=== PATIENT | male | born 1975 | race Caucasian/White ===

== ENCOUNTER → 2016-06-21 | Outpatient (CLI) | payer MEDICARE ==
[~2016-06-21] MED LIST: AMOXICILLIN500 M2 PO; ANUSOL-HC25 MG RC; COLACE100 MG PO; GABAPENTIN CAP 300; GLYCOLAX17 GM/DOSE PO; HYDROCHLOROT TAB 25M; HYDROCHLOROTHIA25 M1 PO; HYDROCODONE BIT1 T11 PO; IBUPROFEN TAB 800; LISINOPRIL AND1 TAB PO; NEURONTIN300 MG PO; OMEPRAZOLE40 MG PO; OXYCODONE 5 MG; OXYCODONE HCL10 M1 PO; OXYMORPHONE HCL10 MG PO; OYSTER SHELL CA1 T20 PO; SENEXON8.6 MG PO; VITAMIN D50000 I3 PO; VITAMIN D50000 IU PO
== END | disposition home or self-care (01) ==
LOC: RAD 11:18
DX: G90.521 Complex regional pain syndrome I of right lower limb (principal)

== ENCOUNTER → 2016-12-21 | Outpatient (CLI) | payer MEDICARE ==
[2016-12-21 09:08] LABS: HEMATOCRIT 40.4 % (42.0-52.0); HEMOGLOBIN 12.9 g/dl (14.0-18.0); MEAN CELL VOLUME 87.6 fl (80.0-94.0); MEAN CORPUSCULAR HGB CONC 31.9 g/dl (33.0-37.0); MEAN PLATELET VOLUME 10.6 fl (9.6-12.3); RED BLOOD COUNT 4.61 10*6/uL (4.50-5.90); RED CELL DISTRI WIDTH 13.8 % (0-14.5)
[2016-12-21 09:28] LABS: BILIRUBIN NEGATIVE (NEGATIVE); BLOOD NEGATIVE (NEGATIVE); CLARITY CLEAR (CLEAR); COLOR YELLOW (YELLOW); GLUCOSE NEGATIVE (NEGATIVE); KETONE NEGATIVE (NEGATIVE); LEUKO ESTERASE NEGATIVE (NEGATIVE); NITRITE NEGATIVE (NEGATIVE); SPECIFIC GRAVITY 1.015 (1.005-1.030); UROBILINOGEN 0.2 E.U./dl (0.2-1.0)
[2016-12-21 09:36] LABS: BUN 9 mg/dl (7-24); CHLORIDE 99 mmol/L (98-107); CREATININE 0.98 mg/dL (0.70-1.30); POTASSIUM 3.7 mmol/L (3.5-5.1); SODIUM 137 mmol/L (136-145)
[2016-12-21 09:45] LABS: BACTERIA TRACE
[2016-12-21 09:47] LABS: ACT PARTIAL THROMBO TIME 25.9 SECONDS (20.8-31.5)
== END | disposition home or self-care (01) ==
LOC: LAB 08:35
PROVIDERS: Anesthesiology Addiction Medicine
DX: Z01.818 Encounter for other preprocedural examination (principal); N39.0 Urinary tract infection, site not specified; I10 Essential (primary) hypertension; M79.606 Pain in leg, unspecified; M54.9 Dorsalgia, unspecified; Z79.899 Other long term (current) drug therapy

== ENCOUNTER 2017-03-14 07:47 | Emergency (ER) | payer MEDICARE ==
[~2017-03-14] VITALS: Ht 180.3 cm; Wt 131.5 kg
[2017-03-14] MEDS ORDERED: LISINOPRIL10 M1 PO (08:02)
[2017-03-14] MEDS ORDERED: NORTRIPTYLINE H75 M1 PO (08:03)
[2017-03-14 08:24] LABS: BASO % 0.2 % (0.0-1.0); EOS # 0.1 10*3/uL (0.0-0.4); EOS % 0.6 % (1.0-4.0); HEMATOCRIT 40.7 % (42.0-52.0); HEMOGLOBIN 13.4 g/dl (14.0-18.0); LYMPH # 1.3 10*3/uL (1.3-4.4); MEAN CELL VOLUME 84.3 fl (80.0-94.0); MEAN CORPUSCULAR HGB 27.7 pg (27.0-31.0); MEAN CORPUSCULAR HGB CONC 32.9 g/dl (33.0-37.0); MEAN PLATELET VOLUME 10.6 fl (9.6-12.3); MONO # 0.6 10*3/uL (0.1-1.0); MONO % 7.3 % (3.0-9.0); NEUT # 6.1 10*3/uL (2.3-7.9); NEUT % 75.7 % (47.0-73.0); PLATELET COUNT AUTOMATED 320 10*3/uL (130-400); RED BLOOD COUNT 4.83 10*6/uL (4.50-5.90); RED CELL DISTRI WIDTH 14.2 % (0-14.5); WHITE BLOOD COUNT 8.1 10*3/uL (4.8-10.8)
[2017-03-14 08:42] LABS: ACT PARTIAL THROMBO TIME 26.1 SECONDS (20.8-31.5)
[2017-03-14 08:43] LABS: ALBUMIN 3.7 gm/dl (3.1-4.5); ALKALINE PHOSPHATASE 170 U/L (45-117); BUN 7 mg/dl (7-24); CHLORIDE 102 mmol/L (98-107); CREATININE 0.87 mg/dL (0.70-1.30); LIPASE 171 U/L (73-393); POTASSIUM 3.7 mmol/L (3.5-5.1); SGOT/AST 28 IU/L (3-35); SGPT/ALT 64 U/L (12-78); SODIUM 137 mmol/L (136-145); TOTAL PROTEIN 8.4 gm/dL (6.4-8.2)
[2017-03-14 08:44] LABS: TROPONIN I < 0.015 ng/ml (<0.045)
[2017-03-14] MEDS ORDERED: FLONASE ALLERG9.9 ML NAS (10:51)
== END 2017-03-14 11:22 | disposition home or self-care (01) ==
LOC: ED 07:47
PROVIDERS: Emergency Medicine
DX: R09.81 Nasal congestion (principal); R06.02 Shortness of breath; Z79.899 Other long term (current) drug therapy; Z87.891 Personal history of nicotine dependence

== ENCOUNTER 2017-04-13 03:49 | Inpatient (IN) | payer MEDICARE ==
[2017-04-13] VITALS (8 sets, daily range): BP systolic 112–146; BP diastolic 64–80
[~2017-04-13] VITALS: Ht 180.3 cm; Wt 124.3 kg
--- NOTE | ~2017-04-13 | PR ---
[place], [place] PROGRESS NOTE NAME: ROCIO COOK UNIT #: [id number] ROOM: 402 DOCTOR: WINTER JIANG MD BIRTHDATE: [birth year] DOS: 04/15/2017 PULMONARY FOLLOWUP SUBJECTIVE: The patient was noted comfortable at this time without any acute distress, was complaining of dizziness. There were no symptoms of shortness of breath reported. He has not been noted symptoms of chest pain or any abdominal pain. The patient does not have any coughing or any sputum expectoration as well. OBJECTIVE: VITAL SIGNS: For the patient, which has been recorded for the patient shows the temperature patient noted as normal. The respiratory rate was noted as 20, heart rate of 106-97, blood pressure 132/80-113/62. Pulse oxygen saturation noted room air 94% saturation at rest. HEENT: Examination shows chronic obesity. NECK: Supple. CARDIOVASCULAR: S1, S2 audible. LUNGS: Without any wheezing or crackles. Decreased pulses right lower lung. ABDOMEN: Soft, nontender and obese. LABORATORY DATA: Arterial blood gas of the patient, the first blood gas was noted to be venous, second blood gas arterial room air, pH of 7.49, pCO2 of 35, pO2 of 71. The 6-minute walk test that was ordered for the patient was personally reviewed as well. The results were noted. There was no evidence of exertional hypoxia, but noted tachycardia and hypertension. The patient noted normal response to the patient's current 6-minute walk test. IMPRESSION: 1. Rule out right diaphragmatic paralysis. The patient has shortness of breath at this time. The patient's etiology is unclear. 2. Chronic obesity and suspected obstructive sleep apnea disorder. PLAN OF THERAPY: No changes in the plan of management per the patient at this time. Ordered the chest x-ray of the patient with fluoroscopy to rule out right diaphragmatic paralysis. In the meantime, continue other treatment the patient has ordered by the primary care attending. [place], [place] PROGRESS NOTE NAME: ROCIO COOK UNIT #: [id number] ROOM: 402 DOCTOR: WINTER JIANG MD BIRTHDATE: [birth year] WINTER DOWD MD CM:PNTRANS [id number] WINTER VALLE MD 04/15/17 175 interface
--- NOTE | ~2017-04-13 | PR ---
[place], [place] PROGRESS NOTE NAME: ROCIO COOK [id number] UNIT #: [id number] ROOM: 402 DOCTOR: NOEMÍ VALLE MD,WINTER BIRTHDATE: [birth year] DOS: 04/16/2017 SUBJECTIVE: The patient noted comfortable at this time without any acute distress. He has been getting cardiac testing for assessment of dizziness and other issues of shortness of breath reported by the patient. He denies symptoms of chest pain. The patient denies symptoms of hemoptysis. OBJECTIVE: VITAL SIGNS: Normal temperature, respiratory rate 20, heart rate 100-118, the heart rate previously noted yesterday 136 beats per minute. Blood pressure 125/80-128/74. The pulse oxygen saturation on room air 95% saturation. HEENT: Shows no acute change. NECK: Supple. CARDIOVASCULAR: S1 and S2 audible. LUNGS: Noted decreased breaths in the right lower lung remains unchanged. ABDOMEN: Soft, nontender with obese. EXTREMITIES: Without any acute edema. LABORATORY DATA: Elevation of right hemidiaphragm was still noted, but the fluoroscopy was not noted with any evidence of diaphragmatic paralysis. IMPRESSION: 1. Elevation of right hemidiaphragm may be related to the liver, but there was no evidence of diaphragmatic paralysis. 2. Shortness of breath. The exact etiology was not clearly understood. 3. Obstructive sleep apnea disorder. 4. Tachycardia, which has been assessed by the Cardiology Services. PLAN OF TREATMENT: No change from the pulmonary standpoint. Continue patient's current therapy plan as previously without changes. All supportive plan of care and management. Usual care. WINTER DOWD MD CM:PNTRANS [id number] WINTER VALLE MD 04/17/17 0021 interface
--- NOTE | ~2017-04-13 | CON ---
[place], [place] REPORT OF CONSULTATION NAME: ROCIO COOK [facility] #: [id number] UNIT #: [id number] ROOM: 402 DOCTOR: NOEMÍ VALLE MDWINTER BIRTHDATE: [birth year] DOS: 04/14/2017 PULMONARY CONSULTATION, EVALUATION AND MANAGEMENT CONSULTATION REQUESTED BY: Hospitalist service. REASON FOR CONSULTATION: For assessment of shortness of breath. HISTORY OF PRESENT ILLNESS: This is a 42-year-old white male with suspected diagnosis of obstructive sleep apnea disorder. He presented to the hospital and admitted to the hospital under care of the hospitalist services. The patient stated symptoms of having shortness of breath, which has been currently progressive, nonresolving at home for the past several months. The symptoms have been noted with gradual worsening. The patient denies symptoms of chest pain or any acute hemoptysis. The patient does have a mild cough, which is occurring with the deep inspiratory effort and noted no sputum expectoration. Denies any wheezing or chest tightness or chest pain as angina. REVIEW OF SYSTEMS: CONSTITUTIONAL: He does report symptoms of fatigue and tiredness. Denies symptoms of abnormal weight loss. EYES: Denies any burning, redness, or tenderness. EARS, NOSE, AND THROAT: History of chronic habitual snoring was known. Denies symptoms of postnasal drainage or epistaxis, earache or sore throat. CARDIOVASCULAR: The patient denies symptoms of pain or edema of lower extremities. Denies symptoms of palpitations. GASTROINTESTINAL: No dysphagia, nausea, vomiting, diarrhea, abdominal pain, hematemesis, melena, hematochezia, or any abnormal weight loss history. GENITOURINARY SYMPTOMS: No dysuria, suprapubic pain, hematuria, or urinary retention. MUSCULOSKELETAL SYMPTOMS: Denies any acute joint pain, redness, or tenderness. History of chronic problem in the right foot of the patient and the leg with a history of RSD as well. CENTRAL NERVOUS SYSTEM: No dizziness, headache, diplopia, syncopal episodes or seizures. SKIN: Denies lesions or rashes. The remaining systems were reviewed with the patient, they were noted all negative. PAST MEDICAL HISTORY: 1. Noted with a history of depression. 2. Essential hypertension. 3. Reactive sympathetic dystrophy. PAST SURGICAL HISTORY: 1. Tonsillectomy as a child. 2. Surgery on the right foot. SOCIAL HISTORY: The patient denies any tobacco, alcohol or illicit drug use. [place], [place] RE[facility] OF CONSULTATION [facility] [id number] UNIT #: [id number] ROOM: 402 DOCTOR: WINTER JIANG MD BIRTHDATE: [birth year] He is reported as and has 4 children. FAMILY HISTORY: Noted as history of lung cancer was reported in the father. Mother with history of ovarian cancer was also reported. HOME MEDICATIONS: Reported as use of Flonase, hydrochlorothiazide, nortriptyline, lisinopril, omeprazole and OxyContin. ALLERGIES: The patient's drug allergy reported as no known drug allergies. PHYSICAL EXAMINATION: GENERAL: This is a 42-year-old white male who has been currently noted awake and alert at this time of assessment and comfortably sitting on the bed. Has not been noted any signs of distress. Able to give me history and cooperative with the examination. His height was recorded by the nursing staff for the patient on admission with height of 5 feet 11 inches, weight of 274 pounds with BMI 51.7. VITAL SIGNS: For the patient reported as normal; temperature 99.3 degrees Fahrenheit on admission. Respiratory rate 17-20, heart rate of 110-72, blood pressure 143/74-126/82. Intake of 975, output of 1400 mL. Pulse oxygen saturation on room air 92% saturation, 99% saturation. HEENT: Examination shows head was atraumatic. Eyes nonicterus. Chronic obesity. Decreased posterior pharyngeal space. CARDIOVASCULAR: S1, S2 audible. LUNGS: The patient was noted with the decreased breaths in the right lower lung. There were no wheezing or crackles. ABDOMEN: Soft and obese. EXTREMITIES: Noted without any edema, clubbing, cyanosis. Chronic scarring on the right lower extremity of the patient was noted and the area of the foot as well. SKIN: The visible skin, no lesions or rashes. CENTRAL NERVOUS SYSTEM: Cranial nerves 2-12 intact. No focal deficit. MUSCULOSKELETAL: Without any acute deformities. LABORATORY DATA: The patient's CBC 04/13/2017, WBC count of 11,000, hemoglobin 12.9, remaining CBC normal. BMP: Glucose 132 on admission, otherwise normal. Troponin was also noted normal on admission as well, first set. CBC, 04/14/2017 this morning was essentially noted normal WBC count at that time as well as platelet count, hemoglobin mildly decreased at 13.2. BMP of this morning, glucose 103, BUN and creatinine was normal. Ultrasound of the lower extremity of the patient was also completed, does not show any evidence of deep venous thrombosis, right lower extremity. The echocardiogram for the patient that was done 04/13/2017, which has been assessed by Dr. Morales for the patient described as findings of normal left ventricular function for the patient was noted without any valvular heart disease for the patient and other abnormalities. There was no pleural effusion. The tricuspid valve of the patient was reported as normal. The right ventricle function was also reported normal. Left ventricle ejection fraction noted as 70%. Review of the radiology data: The chest x-ray that was done for the patient in 09/03/2015 to be exact was noted with mild elevation of the right hemidiaphragm. Chest x-ray that was [place], [place] REPORT OF CONSULTATION NAME: ROCIO COOK UNIT #: [id number] ROOM: 402 DOCTOR: NOEMÍ VALLE MD,[facility] BIRTHDATE: [birth year] done on 03/14/2017 for the patient in the Emergency Room shows similar finding with elevation of the right hemidiaphragm. The chest x-ray yesterday shows similar finding, elevation of right hemidiaphragm. The patient had a CTA of the chest that was done 03/14/2017 in the Emergency Room, assessment of the patient was reviewed, there were no acute abnormal pulmonary findings noted except elevation of the right hemidiaphragm. The CT of the chest of the patient of 04/13/2017 was also done, does not show evidence of pulmonary embolism, persistent elevation of right hemidiaphragm. IMPRESSION: 1. The patient will be currently admitted with the symptom with shortness of breath was noted, which has been noted chronic, most likely related to the elevation of right hemidiaphragm, rule out the paralysis of the right hemidiaphragm. 2. Suspicion of obstructive sleep apnea disorder, required assessment for the patient as an outpatient with a diagnostic sleep study. There were no findings noted for the patient of congestive heart failure or any cardiac issues at the present time. The patient has been already assessed with the echocardiogram and Cardiology services. PLAN OF TREATMENT: Supportive therapy plan and management. Upon improvement in respiratory status, the patient could be considered home discharge. The arterial blood gases was done to assess the patient's ventilatory status and oxygenation level. The chest x-ray of the patient will be done with the fluoroscopy on Sunday as the radiologist not available over the weekend for the patient to assess the possibility of diaphragmatic paralysis assessment. In the meantime, continue other supportive plan of therapy, care plan. Usual treatment. Additional treatment changes will be made based on the progression of the illness. WINTER DOWD MD CM:CONSTR:REPORT OF CONSULTATION [id number] 04/15/17 0152 interface
[~2017-04-13 03:49] MED LIST changes: +FLONASE ALLERG9.9 ML NAS; +LISINOPRIL10 M1 PO; +NORTRIPTYLINE H75 M1 PO
[2017-04-13 04:30] LABS: BASO # 0.1 10*3/uL (0.0-0.1); BASO % 0.5 % (0.0-1.0); EOS # 0.1 10*3/uL (0.0-0.4); EOS % 0.8 % (1.0-4.0); HEMATOCRIT 39.3 % (42.0-52.0); HEMOGLOBIN 12.9 g/dl (14.0-18.0); LYMPH # 2.1 10*3/uL (1.3-4.4); LYMPH % 18.7 % (27.0-41.0); MEAN CELL VOLUME 86.4 fl (80.0-94.0); MEAN CORPUSCULAR HGB 28.4 pg (27.0-31.0); MEAN CORPUSCULAR HGB CONC 32.8 g/dl (33.0-37.0); MEAN PLATELET VOLUME 10.2 fl (9.6-12.3); MONO # 0.8 10*3/uL (0.1-1.0); MONO % 7.3 % (3.0-9.0); NEUT # 7.9 10*3/uL (2.3-7.9); NEUT % 72.4 % (47.0-73.0); PLATELET COUNT AUTOMATED 333 10*3/uL (130-400); RED BLOOD COUNT 4.55 10*6/uL (4.50-5.90); RED CELL DISTRI WIDTH 13.9 % (0-14.5)
[2017-04-13 04:49] LABS: BUN 7 mg/dl (7-24); CHLORIDE 102 mmol/L (98-107); POTASSIUM 4.2 mmol/L (3.5-5.1); SODIUM 139 mmol/L (136-145)
[2017-04-13 04:51] LABS: TROPONIN I < 0.015 ng/ml (<0.045)
[2017-04-13 08:05] LABS: TROPONIN I < 0.015 ng/ml (<0.045)
[2017-04-13] MEDS ORDERED: 24 HOUR ALLER15.8 ML NAS (09:28)
[2017-04-13] MEDS ORDERED: ACID REDUCER20 MG PO (09:35)
[2017-04-14] VITALS: BP 133/80
[2017-04-14 07:03] LABS: BASO # 0.1 10*3/uL (0.0-0.1); BASO % 0.6 % (0.0-1.0); EOS # 0.2 10*3/uL (0.0-0.4); HEMATOCRIT 41.3 % (42.0-52.0); HEMOGLOBIN 13.2 g/dl (14.0-18.0); LYMPH # 3.5 10*3/uL (1.3-4.4); LYMPH % 35.8 % (27.0-41.0); MEAN CELL VOLUME 87.7 fl (80.0-94.0); MEAN PLATELET VOLUME 10.2 fl (9.6-12.3); MONO # 0.9 10*3/uL (0.1-1.0); MONO % 9.3 % (3.0-9.0); PLATELET COUNT AUTOMATED 365 10*3/uL (130-400); RED BLOOD COUNT 4.71 10*6/uL (4.50-5.90); WHITE BLOOD COUNT 9.6 10*3/uL (4.8-10.8)
[2017-04-14 07:37] LABS: CHLORIDE 98 mmol/L (98-107); POTASSIUM 3.7 mmol/L (3.5-5.1); SODIUM 138 mmol/L (136-145)
[2017-04-14 07:55] LABS: BUN 9 mg/dl (7-24); CHOLESTEROL 159 mg/dL (<200); CREATININE 0.98 mg/dL (0.70-1.30); HDL CHOLESTEROL 44 mg/dl (40-60); LDL CHOLESTEROL 96 mg/dL (9-159); PHOSPHOROUS 4.3 mg/dL (2.5-4.9); TRIGLYCERIDES 93 mg/dl (<150); VLDL CHOLESTEROL 19 mg/dL (6-40)
[2017-04-14 08:00] VITALS: BP 126/82
[2017-04-14 08:49] LABS: VITAMIN D, 25-HYDROXY 12.6 ng/mL (30-100)
[2017-04-14 12:00] VITALS: BP 113/65
[2017-04-14 16:00] VITALS: BP 104/57
[2017-04-14 16:11] LABS: ABG BASE EXCESS 4.9 mmol/L (-2.0-2.0); ABG HCO3 31.3 mmol/l (22-26); ABG O2 SATURATION 51.1 % (95-97); ARTERIAL BLOOD GAS PCO2 54.8 mmHg (35-45); ARTERIAL BLOOD GAS PH 7.372 (7.35-7.45)
[2017-04-14 16:13] LABS: ARTERIAL BLOOD GAS PO2 28.3 mmHg (80-90)
[2017-04-14 16:30] LABS: ABG O2 SATURATION 96.1 % (95-97); ARTERIAL BLOOD GAS PCO2 35.1 mmHg (35-45); ARTERIAL BLOOD GAS PH 7.495 (7.35-7.45); ARTERIAL BLOOD GAS PO2 71.1 mmHg (80-90)
[2017-04-14 20:00] VITALS: BP 110/66
[2017-04-15] VITALS (8 sets, daily range): BP systolic 102–142; BP diastolic 58–93
[2017-04-16] VITALS: BP 127/78
[2017-04-16 08:00] VITALS: BP 128/74
[2017-04-16 12:00] VITALS: BP 125/82
[2017-04-16 16:00] VITALS: BP 148/75
[2017-04-16] MEDS ORDERED: GLUCOPHAGE500 MG PO (16:44)
[2017-04-16] MEDS ORDERED: LIPITOR80 MG PO (16:44)
[2017-04-16] MEDS ORDERED: VITAMIN D-32000 UNI1 PO (16:44)
[2017-04-16] MEDS ORDERED: LOPRESSOR25 MG PO (16:45)
== END 2017-04-16 17:02 | disposition home or self-care (01) | DRG 202 ==
LOC: ED 03:49 → 4E 06:22 → EDHOLD 06:22 → 4E 06:31
PROVIDERS: Emergency Medicine Emergency Medical Services; Internal Medicine; Internal Medicine Critical Care Medicine; Student in an Organized Health Care Education/Training Program
PROC: 3E073KZ Introduction of Other Diagnostic Substance into Coronary Artery, Percutaneous Approach (ICD-10-PCS; principal; 2017-04-16)
PROC: 4A02XM4 Measurement of Cardiac Total Activity, External Approach (ICD-10-PCS; principal; 2017-04-16)
DX: J45.41 Moderate persistent asthma with (acute) exacerbation (principal); R65.10 Systemic inflammatory response syndrome (SIRS) of non-infectious origin without acute organ dysfunction; E11.65 Type 2 diabetes mellitus with hyperglycemia; K59.00 Constipation, unspecified; D72.810 Lymphocytopenia; D64.9 Anemia, unspecified; E66.9 Obesity, unspecified; F32.9 Major depressive disorder, single episode, unspecified; I10 Essential (primary) hypertension; R00.0 Tachycardia, unspecified; R68.89 Other general symptoms and signs; G57.71 Causalgia of right lower limb; G89.4 Chronic pain syndrome; G47.33 Obstructive sleep apnea (adult) (pediatric); Z82.49 Family history of ischemic heart disease and other diseases of the circulatory system; Z80.41 Family history of malignant neoplasm of ovary; Z68.39 Body mass index [BMI] 39.0-39.9, adult; Z79.899 Other long term (current) drug therapy

== ENCOUNTER → 2020-03-23 | Outpatient (CLI) | payer OTHER ==
[~2020-03-23] MED LIST changes: +24 HOUR ALLER15.8 ML NAS; +ACID REDUCER20 MG PO; +GLUCOPHAGE500 MG PO; +LIPITOR80 MG PO; +LOPRESSOR25 MG PO; +VITAMIN D-32000 UNI1 PO
== END | disposition home or self-care (01) ==
LOC: RAD 10:58
PROVIDERS: ATTEND Physician Assistant Medical
DX: M25.579 Pain in unspecified ankle and joints of unspecified foot (principal)

== ENCOUNTER → 2022-06-21 | Outpatient (CLI) | payer MEDICARE | END | disposition home or self-care (01) | LOC: RAD 11:30 | PROVIDERS: ATTEND Family Medicine | DX: M25.571 Pain in right ankle and joints of right foot (principal); G89.18 Other acute postprocedural pain; Z98.890 Other specified postprocedural states; Z96.661 Presence of right artificial ankle joint ==

== ENCOUNTER → 2023-01-29 | Day surgery (SDC) | payer MEDICARE ==
[~2023-01-29] VITALS: Ht 180.3 cm; Wt 114.3 kg
[~2023-01-29] MED LIST changes: +LOSARTAN POTASS25 M1 PO
[2023-01-29 11:29] VITALS: BP 121/75
[2023-01-29 12:25] VITALS: BP 93/47
[2023-01-29 12:40] VITALS: BP 96/55
[2023-01-29 12:47] VITALS: BP 105/52
== END | disposition home or self-care (01) ==
LOC: SDC 01-26 11:45
PROVIDERS: ATTEND Surgery
DX: Z12.11 Encounter for screening for malignant neoplasm of colon (principal); K63.5 Polyp of colon; I10 Essential (primary) hypertension; G47.30 Sleep apnea, unspecified; Z87.891 Personal history of nicotine dependence; Z98.890 Other specified postprocedural states; Z88.8 Allergy status to other drugs, medicaments and biological substances

== ENCOUNTER → 2023-09-12 | Outpatient (CLI) | payer MEDICARE | END | disposition home or self-care (01) | LOC: RAD 10:51 | PROVIDERS: ATTEND Family Medicine | DX: M19.071 Primary osteoarthritis, right ankle and foot (principal); M25.571 Pain in right ankle and joints of right foot; Z96.661 Presence of right artificial ankle joint ==